=== PATIENT | female | born 1995 | race African-American/Black ===

== ENCOUNTER 2021-07-26 13:43 | Emergency (ER) | payer OTHER ==
[~2021-07-26] VITALS: Ht 182.9 cm; Wt 68.0 kg
[2021-07-26] MEDS ORDERED: SODIUM CHLORIDE 0.9% 1,000 ML IV ONE (14:00)
[2021-07-26] MEDS ORDERED: DEXTROSE 50% WATER 50ML SYRINGE IV NR (16:45)
[2021-07-26 16:47] LABS: BASOPHILS % 0.4 % (0.0-2.0); EOSINOPHILS % 4.1 % (0.0-5.0); HEMATOCRIT. 37.4 % (36.0-48.0); LYMPHOCYTES % 17.1 % (20.0-50.0); MEAN CORPUSCULAR HEMOGLOBIN 27.7 pg (28.0-32.0); MEAN CORPUSCULAR VOLUME 86.3 fL (81.0-99.0); MEAN PLATELET VOLUME 8.7 fl (7.4-10.4); MONOCYTES % 7.5 % (2.0-8.0); NEUTROPHILS % 70.9 % (40.0-76.0); PLATELET 233 x1000/uL (130-400); RED BLOOD CELL COUNT 4.33 mill/uL (4.2-5.4)
[2021-07-26 16:54] LABS: CHLORIDE 112 mEq/L (98-107)
[2021-07-26 16:58] LABS: ETHANOL BLOOD < 10 mg/dL
[2021-07-26 17:00] LABS: HCG SCREEN NEGATIVE
[2021-07-26 17:06] LABS: CARBAMAZEPINE < 0.5 ug/mL (4-12); PHENOBARBITAL < 2.1 ug/mL (15.0-40.0); VALPROIC ACID < 3.0 ug/mL (50-100)
[2021-07-26 18:00] VITALS: BP 109/6
[2021-07-26] MEDS ORDERED: LEVETIRACETAM 1000MG PREMIX 100 ML IV ONE (18:30)
[2021-07-26] MEDS ORDERED: ACETAMINOPHEN 325MG TABLET PO ONE (18:30)
[2021-07-26] MEDS ORDERED: LEVE1000 MT (19:50)
== END 2021-07-26 20:43 | disposition home or self-care (01) ==
LOC: ER 13:51 → EDBD 13:51 → ER 20:43
DX: R56.9 Unspecified convulsions (principal); Z91.14 Patient's other noncompliance with medication regimen
CPT/HCPCS: 36415; 70450; 72125; 80053; 80156; 80165; 80184; 80185; 80320; 82962; 84703; 85025; 93005; 96360; 99285; J7030; G0480

== ENCOUNTER 2022-07-17 23:35 | Emergency (ER) | payer MEDICAID, OTHER ==
[~2022-07-17] VITALS: Ht 160 cm; Wt 55.0 kg
[~2022-07-17 23:35] MED LIST: LEVE1000 MT
[2022-07-17] MEDS ORDERED: LEVETIRACETAM 1000MG PREMIX 100 ML IV ONE (23:45)
[2022-07-17] MEDS ORDERED: SODIUM CHLORIDE 0.9% 1,000 ML IV ONE (23:45)
[2022-07-18 00:19] LABS: CHLORIDE 111 mEq/L (98-107)
[2022-07-18 00:26] LABS: ETHANOL BLOOD < 10 mg/dL
[2022-07-18 03:44] LABS: CLARITY URINE TURBID (CLEAR); COLOR URINE YELLOW (YELLOW); KETONES URINE NEGATIVE (NEGATIVE); LEUKOCYTE ESTERASE URINE 3+ (NEGATIVE); NITRITE URINE NEGATIVE (NEGATIVE); OCCULT BLOOD URINE TRACE (NEGATIVE); PROTEIN URINE 1+ (NEGATIVE); SPECIFIC GRAVITY URINE 1.031 (1.005-1.030)
[2022-07-18 03:56] LABS: *BARBITURATES SCREEN URINE NEGATIVE (NEGATIVE); *COCAINE SCREEN URINE NEGATIVE (NEGATIVE); METHADONE URINE SCREEN NEGATIVE (NEGATIVE); OPIATES URINE SCREEN NEGATIVE (NEGATIVE); PHENCYCLIDINE URINE SCREEN NEGATIVE (NEGATIVE)
[2022-07-18 04:05] LABS: *AMPHETAMINES SCREEN URINE PRESUMTIVE POSITIVE (NEGATIVE); *BENZODIAZEPINES SCREEN URINE PRESUMTIVE POSITIVE (NEGATIVE); CANNABINOID URINE SCREEN PRESUMTIVE POSITIVE (NEGATIVE)
[2022-07-18 04:22] LABS: BASOPHILS % 0.7 % (0.0-2.0); EOSINOPHILS % 3.7 % (0.0-5.0); HEMATOCRIT. 33.2 % (36.0-48.0); HEMOGLOBIN. 10.6 g/dL (12.0-16.0); LYMPHOCYTES % 18.3 % (20.0-50.0); MEAN CORPUSCULAR HEMOGLOBIN 24.9 pg (28.0-32.0); MEAN CORPUSCULAR VOLUME 77.8 fL (81.0-99.0); MEAN PLATELET VOLUME 8.5 fl (7.4-10.4); MONOCYTES % 9.4 % (2.0-8.0); NEUTROPHILS % 67.9 % (40.0-76.0); PLATELET 350 x1000/uL (130-400); RED BLOOD CELL COUNT 4.27 mill/uL (4.2-5.4); RED CELL DISTRIBUTION WIDTH 16.7 % (11.6-14.6)
[2022-07-18 04:49] LABS: HCG SCREEN NEGATIVE
[2022-07-18] MEDS ORDERED: ONDANSETRON HCL 4MG/2ML INJ IV STA (04:53)
[2022-07-18] MEDS ORDERED: MORPHINE SULFATE 4 MG/ML CPJ (NOT FOR IM USE) IV STA (04:53)
[2022-07-18] MEDS ORDERED: CEFTRIAXONE 1GM PREMIX 50 ML IV ONE (05:00)
[2022-07-18] MEDS ORDERED: AMOX1TAB16 MT (05:45)
[2022-07-18] MEDS ORDERED: T3 PO (05:45)
[2022-07-18] MEDS ORDERED: IBUP-2029 MT (05:45)
[2022-07-18 11:31] VITALS: BP 97/55
== END 2022-07-18 11:33 | disposition home or self-care (01) ==
LOC: ER 23:42
DX: S02.609A Fracture of mandible, unspecified, initial encounter for closed fracture (principal); R56.9 Unspecified convulsions; Y08.89XA Assault by other specified means, initial encounter; Y93.89 Activity, other specified; Y92.89 Other specified places as the place of occurrence of the external cause; Y99.8 Other external cause status; Z79.899 Other long term (current) drug therapy
CPT/HCPCS: 36415; 70450; 70486; 80053; 80305; 80320; 81003; 81025; 84703; 85025; 87077; 87086; 96365; 96367; 96375; 99285; J0696; J1953; J2270; J2405; J7030; Z7610; G0480

== ENCOUNTER 2022-07-24 23:50 | Emergency (ER) | payer MEDICAID, OTHER ==
[~2022-07-24] VITALS: Ht 185.4 cm; Wt 55.0 kg
[~2022-07-24 23:50] MED LIST changes: +AMOX1TAB16 MT; +IBUP-2029 MT; +T3 PO
[2022-07-25] MEDS ORDERED: HYDROCODONE/ACETAMINOPHEN 5/325MG TABLET PO ONE (01:30)
[2022-07-25] MEDS ORDERED: T3 PO (01:37)
[2022-07-25] MEDS ORDERED: AMOX1TAB16 MT (01:39)
[2022-07-25] MEDS ORDERED: IBUP-2029 MT (01:39)
[2022-07-25 02:23] VITALS: BP 97/55
== END 2022-07-25 02:24 | disposition home or self-care (01) ==
LOC: ER 07-25 00:07
DX: S02.609A Fracture of mandible, unspecified, initial encounter for closed fracture (principal); X58.XXXA Exposure to other specified factors, initial encounter; Y93.89 Activity, other specified; Y92.89 Other specified places as the place of occurrence of the external cause; Y99.8 Other external cause status; F15.10 Other stimulant abuse, uncomplicated; Z79.899 Other long term (current) drug therapy
CPT/HCPCS: 99281